=== PATIENT | female | born 2000 | race Caucasian/White ===

== ENCOUNTER → 2024-03-19 11:19 | Outpatient (CLI) | payer OTHER, SELFPAY ==
[2024-03-19 12:26] LABS: Add Manual Diff / Slide Review NO; Basophils Absolute Auto 0 /uL (0-100); Basophils Percent Auto 0.5 % (0-2); Eosinophils Absolute Auto 100 /uL (0-450); Eosinophils Percent Auto 2.4 % (2-4); Hematocrit 40.6 % (36-46); Hemoglobin 13.9 g/dL (12.0-16.0); Lymphocytes Absolute Auto 1700 /uL (1100-4500); Lymphocytes Percent Auto 31.6 % (25-40); Mean Corpuscular HGB Conc 34.3 % (30-36); Mean Corpuscular Hemoglobin 29.7 PG (26-34); Mean Corpuscular Volume 86.5 fL (80-100); Monocytes Absolute Auto 300 /uL (0-900); Monocytes Percent Auto 6.1 % (3-14); Neutrophils Absolute Auto 3300 /uL (1500-7000); Neutrophils Percent Auto 59.4 % (50-75); Platelet Count 271 X10^3/uL (150-400); Red Cell Distribution Width 12.5 % (11.6-14.8); White Blood Cell Count 5.5 X10^3/uL (4.5-11.0)
[2024-03-19 12:38] LABS: Alanine Aminotransferase 23 IU/L (<35); Albumin 4.8 g/dL (3.5-5.0); Albumin Globulin Ratio 1.7 (1.0-2.8); Alkaline Phosphatase 74 U/L (38-126); Aspartate Aminotransferase 24 IU/L (14-36); BUN Creatinine Ratio 19.1 (6-22); Bilirubin Total 1.2 mg/dL (0.2-1.3); Blood Urea Nitrogen 13 mg/dL (7-17); Calcium 9.3 mg/dL (8.4-10.2); Carbon Dioxide 24 mmol/L (22-32); Chloride 106 mmol/L (98-107); Estimated Glomerular Filt Rate > 60 mL/min (>60); Globulin 2.8 g/dL (1.7-4.1); Glucose 93 mg/dL (70-100); HEMOLYSIS < 15 (0-50); Potassium 4.6 mmol/L (3.4-5.1); Sodium 140 mmol/L (137-145); Total Protein 7.6 g/dL (6.3-8.2)
[2024-03-19 12:40] LABS: HEMOLYSIS < 15 (0-50); Iron 66 ug/dL (37-170)
[2024-03-19 12:47] LABS: Transferrin 288 mg/dL (206-381)
[2024-03-19 13:11] LABS: Ferritin 16 ng/mL (6-137)
[2024-03-19 14:59] LABS: PTT Partial Thromboplastin Tim 36 SECONDS (25.1-36.5)
== END ==
PROVIDERS: PCP Family Medicine; Referring Provider Family Medicine; Visit Provider Family Medicine
DX: N92.0 Excessive and frequent menstruation with regular cycle (principal)
CPT/HCPCS: 36415; 80053; 82728; 83540; 83550; 85025; 85240; 85246; 85302; 85306; 85730

== ENCOUNTER → 2025-07-03 07:05 | Outpatient (CLI) | payer OTHER, SELFPAY ==
--- NOTE | 2025-07-03 07:07 | DI.US.S_ITS ---
PROCEDURE: US OB <= 14 WEEKS FETUS INDICATIONS: DATING, OUTSIDE/PRIOR DATING DATA: Last menstrual period (LMP): Unknown. LMP-based estimated date of delivery (TISHA): Unknown. First dating scan (date and location): 07/03/2025, [facility]. TECHNIQUE: Real-time scanning was performed of the fetus and maternal pelvic organs, with image documentation. Endovaginal scanning was also performed to better visualize the fetus and maternal ovaries. COMPARISON: None. FINDINGS: Gestational sac: Intrauterine in location, with mean gestational sac diameter of 6.6 mm corresponding to 5 weeks 3 days. Visualized yolk sac within the gestational sac. No visualized embryo. Maternal organs: Ovaries likely a right adnexal corpus luteum.. IMPRESSION: Intrauterine of uncertain prognosis due to visualized yolk sac but no visualized embryo. Recommend follow-up pelvic ultrasound in 7-10 days with repeat beta HCG.. We strive to produce accurate, complete, and clear reports of imaging services. To assist us in improving patient care, this report was composed using standard report templates and voice recognition software. Therefore, it may contain abnormal punctuation, insertions and/or omissions. Occasional wrong-word or sound-alike substitutions may occur. Though we review the report and make efforts to correct it, we do recommend that the report be read carefully in proper context to recognize any text inaccuracies. Dictated by: Donald Daniels M.D. on 07/03/2025 at 8:45 Approved by: Donald Daniels M.D. on 07/03/2025 at 8:51
== END ==
LOC: US 07:07
PROVIDERS: PCP Family Medicine; Referring Provider Family Medicine; Visit Provider Family Medicine
DX: O36.80X0 Pregnancy with inconclusive fetal viability, not applicable or unspecified (principal)
CPT/HCPCS: 76801

== ENCOUNTER → 2025-07-08 10:01 | Outpatient (CLI) | payer OTHER, SELFPAY ==
[2025-07-08 10:33] LABS: Add Manual Diff / Slide Review NO; Hematocrit 38.5 % (36-46); Hemoglobin 13.5 g/dL (12.0-16.0); Lymphocytes Absolute Auto 1700 /uL (1100-4500); Mean Corpuscular HGB Conc 35.0 % (30-36); Mean Corpuscular Hemoglobin 30.0 PG (26-34); Mean Corpuscular Volume 85.8 fL (80-100); Platelet Count 270 X10^3/uL (150-400)
[2025-07-08 10:47] LABS: HEMOLYSIS < 15 (0-50); Hemoglobin A1C% w Est Avg Glu 5.1 % (4.0-6.0); Iron 101 ug/dL (37-170)
[2025-07-08 10:50] LABS: Alanine Aminotransferase 38 IU/L (<35); Albumin 4.8 g/dL (3.5-5.0); Albumin Globulin Ratio 1.8 (1.0-2.8); Alkaline Phosphatase 71 U/L (38-126); Blood Urea Nitrogen 6 mg/dL (7-17); Calcium 9.4 mg/dL (8.4-10.2); Carbon Dioxide 18 mmol/L (22-32); Chloride 106 mmol/L (98-107); Estimated Glomerular Filt Rate > 60 mL/min (>60); Globulin 2.7 g/dL (1.7-4.1); Glucose 100 mg/dL (70-99); HEMOLYSIS < 15 (0-50); Potassium 4.1 mmol/L (3.4-5.1); Sodium 137 mmol/L (137-145); Total Protein 7.5 g/dL (6.3-8.2)
[2025-07-08 10:59] LABS: Percent Iron Saturation 28 % (15-50); Total Iron Binding Capacity 365 ug/dL (265-497); Transferrin 312 mg/dL (206-381)
[2025-07-08 11:22] LABS: Ferritin 23 ng/mL (6-137)
[2025-07-08 11:46] LABS: HIV 1 & 2 Ab/Ag 4th Gen Combo NEGATIVE (NEGATIVE); Hep C Virus Ab w/Reflex Quant NEGATIVE s/c (NEGATIVE)
[2025-07-08 11:47] LABS: HCG Quantitative /Beta subunit 50421 mIU/mL
[2025-07-09 12:09] LABS: Rubeola Measles IgG 126.0 AU/mL (Immune >16.4)
== END ==
PROVIDERS: PCP Family Medicine; Referring Provider Family Medicine; Visit Provider Family Medicine
DX: Z34.91 Encounter for supervision of normal pregnancy, unspecified, first trimester (principal); R51.9 Headache, unspecified; G89.29 Other chronic pain; E28.2 Polycystic ovarian syndrome
CPT/HCPCS: 36415; 80053; 82728; 83036; 83540; 83550; 84702; 85025; 86592; 86765; 86787; 86803; 86850; 86900; 86901; 87389

== ENCOUNTER → 2025-07-10 06:58 | Outpatient (CLI) | payer OTHER, SELFPAY ==
--- NOTE | 2025-07-10 06:59 | DI.US.S_ITS ---
PROCEDURE: US OB FOLLOW UP INDICATIONS: follow up from US dated 07/03 TECHNIQUE: Real-time scanning was performed of the fetus, with image documentation. Endovaginal scanning: Performed COMPARISON: None. FINDINGS: Gestational sac in the uterine fundus with embryo with crown-rump length of 0.8 cm which is 6 weeks 5 days. No perigestational hemorrhage. heart rate detected at 131 beats per minute. Maternal ovaries not imaged. IMPRESSION: Single living intrauterine with ultrasound age 6 weeks 5 days. Dictated by: Dixon Turner M.D. on 07/10/2025 at 10:32 Approved by: Dixon Turner M.D. on 07/10/2025 at 10:36
[2025-07-10 10:01] LABS: HCG Quantitative /Beta subunit 60100 mIU/mL
== END ==
LOC: US 06:59
PROVIDERS: PCP Family Medicine; Referring Provider Family Medicine; Visit Provider Family Medicine
DX: O26.91 Pregnancy related conditions, unspecified, first trimester (principal); Z3A.01 Less than 8 weeks gestation of pregnancy
CPT/HCPCS: 36415; 76816; 76817; 84702

== ENCOUNTER → 2025-07-24 16:38 | Outpatient (CLI) | payer OTHER, SELFPAY | PROVIDERS: PCP Family Medicine; Referring Provider Family Medicine; Visit Provider Family Medicine | DX: Z34.91 Encounter for supervision of normal pregnancy, unspecified, first trimester (principal) | CPT/HCPCS: 36415; 84702 ==